=== PATIENT | male | born 1945 | race Caucasian/White ===

== ENCOUNTER 2020-08-26 12:05 | Emergency (ER) | payer MEDICARE ==
[2020-08-26 14:55] LABS: HEMOGLOBIN 14.2 gm/dl (14.0-17.5); RED BLOOD COUNT 4.55 M/UL (4.20-5.50); WHITE BLOOD COUNT 6.1 K/UL (4.5-11.0)
[2020-08-26 15:16] LABS: BUN/CREATININE RATIO 15 (0-10)
== END 2020-08-26 16:50 | disposition home or self-care (01) ==
LOC: ER1 12:05
PROVIDERS: Physician Assistant Medical
DX: R60.0 Localized edema (principal); R79.1 Abnormal coagulation profile; I10 Essential (primary) hypertension; E78.5 Hyperlipidemia, unspecified; Z88.8 Allergy status to other drugs, medicaments and biological substances; Z86.73 Personal history of transient ischemic attack (TIA), and cerebral infarction without residual deficits
CPT/HCPCS: 80053; 85025; 85379; 85610; 96372; 99283; J1650

== ENCOUNTER → 2020-08-27 | Outpatient (CLI) | payer MEDICARE | LOC: EXRD 13:59 | DX: M79.89 Other specified soft tissue disorders (principal); R79.89 Other specified abnormal findings of blood chemistry | CPT/HCPCS: 93971 ==